=== PATIENT | female | born 1995 | race Caucasian/White ===

== ENCOUNTER 2023-08-14 17:24 | Emergency (ER) | payer BC ==
[~2023-08-14] VITALS: Ht 167.6 cm; Wt 68.0 kg
[2023-08-14 18:02] VITALS: O2SAT 99
[2023-08-14] MEDS ORDERED: AZIT250T12 MT (21:03)
[2023-08-14] MEDS ORDERED: HYDR-4001 MT (21:03)
[2023-08-14] MEDS ORDERED: IBUP-1523 MT (21:03)
[2023-08-14] MEDS ORDERED: HYDROCODONE/ACETAMINOPHEN 5/325MG TABLET PO ONE (21:15)
[2023-08-14 21:23] VITALS: BP 126/64; PULSE 72; RESP 18; TEMP 98
== END 2023-08-14 21:25 | disposition home or self-care (01) ==
LOC: ER 17:24
DX: R06.02 Shortness of breath (principal); R05.3 Chronic cough; R09.81 Nasal congestion
CPT/HCPCS: 71045; 99283